=== PATIENT | male | born 1980 | race Two or more races ===

== ENCOUNTER → 2024-07-22 | Outpatient (CLI) | payer MEDICAID, SELFPAY ==
--- NOTE | 2024-07-22 11:00 | XR_ITS ---
Examination: Abdomen sonogram, Limited Date and time of exam: July 22, 2024 1040 hours INDICATIONS: Elevated liver function tests on laboratory examination performed one month ago Technique: Real-time varghese scale transabdominal sonographic images of the upper abdomen obtained. Findings: Normal gallbladder Normal common bile duct 0.4 cm Pancreatic head 2.6 cm Liver 13.8 cm fatty infiltration no focal liver lesions Normal hepatopedal portal venous flow Patent IVC IMPRESSION: Normal gallbladder Normal common bile duct Fatty liver
== END | disposition home or self-care (01) ==
PROVIDERS: PCP Nurse Practitioner Family; Referring Provider Nurse Practitioner Family; Visit Provider Nurse Practitioner Family
DX: K76.0 Fatty (change of) liver, not elsewhere classified (principal)
CPT/HCPCS: 76705

== ENCOUNTER 2024-08-05 19:21 | Emergency (ER) | payer MEDICAID, SELFPAY ==
[2024-08-05 19:22] VITALS: BMI 29.0
--- NOTE | 2024-08-05 19:26 | EKG_ITS ---
[facility] Test Date: 2024-08-05 Pat Name: KE BILL Department: Room: - Gender: Male Director Surgical: : 1980 Requested By: ED Temporary Provider Order Number: [id number] Reading MD: ED Temporary Provider Measurements Intervals [place] Rate: 83 P: 19 [place]: 155 QRS: 52 QRSD: 86 T: 46 QT: 285 QTc: 336 Interpretive Statements SINUS RHYTHM NONSPECIFIC T-WAVE ABNORMALITY No previous ECG available for comparison /store/S0/[id number]/ecg/[id number].pdf
[2024-08-05 19:36] VITALS: BP 118/76; PULSE 76; RESP 18; TEMP 36.9; O2SAT 98
--- NOTE | 2024-08-05 19:43 | EDRME_ITS ---
Rapid Medical Screening Exam [facility] Arrival date/time: 08/05/24 19:21 43-year-old male with past medical history of hyperlipidemia, daily smoker, and occasional drinker presents emergency department complaining of intermittent palpitations and chest pain that radiates to his neck for several days. Chief Complaint: Chest Pain Vital signs: Vital Signs Temperature 98.4 F 08/05/24 19:36 Pulse Rate 76 08/05/24 19:36 Respiratory Rate 18 08/05/24 19:36 Blood Pressure 118/76 08/05/24 19:36 Pulse Oximetry (%) 98 08/05/24 19:36 Oxygen Delivery Method Room Air 08/05/24 19:36 Vital signs reviewed by provider: Yes
--- NOTE | 2024-08-05 19:44 | XR_ITS ---
Examination: PA lateral chest 2 views Technique: Upright PA lateral chest 2 views Exam date and time: August 05, 20242001 hrs. Indications: Chest pain today Findings: Normal heart size. Lungs are clear. The osseous structures are intact Impression: No active disease
[2024-08-05 20:01] LABS: Basophils # (Auto) 0.1 Thou/mm3 (0.0-0.2); Basophils % (Auto) 1 % (0-2.5); Eosinophils # (Auto) 0.4 Thou/mm3 (0.0-0.5); Eosinophils % (Auto) 4 % (0-10); Hematocrit 43.7 % (41.0-53.0); Immature Granulocytes % (Auto) 1 % (0-0); Immature Granulocytes Auto 0.05 Thou/mm3 (0.00-0.00); Lymphocytes # (Auto) 2.9 Thou/mm3 (1.0-4.8); Lymphocytes % (Auto) 29 % (10-50); Mean Corpuscular HGB Conc 34.3 g/dl (31.0-37.0); Mean Corpuscular Hemoglobin 32.3 pg (25.0-35.0); Mean Corpuscular Volume 94 fL (80-100); Monocytes # (Auto) 0.9 Thou/mm3 (0.0-0.8); Monocytes % (Auto) 9 % (0-12); Neutrophils # (Auto) 5.7 Thou/mm3 (1.8-7.7); Neutrophils % (Auto) 57 % (37-80); Nucleated Red Blood Cell % 0 /100 WBC (0); Platelet Count 337 Thou/mm3 (140-440); RDW Standard Deviation 39.8 fL (35.1-43.9); Red Blood Count 4.64 Miln/mm3 (4.50-5.90)
[2024-08-05 20:12] LABS: Collection Type, Urine Clean Catch; Squamous Epithelial Cell,Urine 0 /hpf (0-5)
[2024-08-05 20:16] LABS: Bilirubin,Urine Negative (Negative); Blood,Urine Negative (Negative); Clarity,Urine Clear (Clear/Hazy); Color,Urine Colorless (Lt Yel-Yel); Glucose, Urine Negative (Negative); Ketones,Urine Negative (Negative); Leukocyte Esterase,Urine Negative (Negative); Nitrite,Urine Negative (Negative); Protein,Urine Negative (Neg - Trace); RBC,Urine < 1 /hpf (0-3); Specific Gravity,Urine 1.007 (1.001-1.035); Urobilinogen,Urine Negative mg/dL (0.0-1.0); WBC,Urine < 1 /hpf (0-5)
[2024-08-05 20:18] LABS: Partial Thromboplastin Time 26.5 Seconds (22.0-36.0); Prothrombin Time 11.3 Seconds (9.0-12.2)
[2024-08-05 20:20] VITALS: BP 115/69; PULSE 83; RESP 15; TEMP 36.6; O2SAT 96
[2024-08-05 20:26] LABS: Amphetamine/Methamp Scrn,U Negative (Negative); Barbiturate Screen,Urine Negative (Negative); Benzodiazepines Screen,Urine Negative (Negative); Benzoylecgonine Screen, Ur Negative (Negative); Fentanyl Screen,Urine Negative (Negative); Opiate Screen,Urine Negative (Negative); THC Screen,Urine Negative (Negative)
[2024-08-05 20:27] LABS: B-Type Natriuretic Peptide < 20 pg/mL (0-100)
[2024-08-05 20:31] LABS: Alanine Aminotransferase 95 U/L (10-49); Albumin, Serum 4.8 gm/dL (3.5-5.0); Alkaline Phosphatase 93 U/L (46-116); Anion Gap 10 (7-16); Aspartate Amino Transferase 53 U/L (0-34); BUN/Creatinine Ratio 16 Ratio (12-20); Bilirubin,Total 0.6 mg/dL (0.3-1.2); Blood Urea Nitrogen 16 mg/dL (9-23); Calcium 9.6 mg/dL (8.3-10.6); Calcium (Corrected) 9.6 mg/dL (8.5-10.1); Carbon Dioxide 25.2 mMol/L (20.0-31.0); Chloride 104 mMol/L (98-107); Estimated Creatinine Clearance 94.6 mL/min (>60); Globulin 2.4 gm/dL (2.3-3.5); Glucose 128 mg/dL (74-106); Magnesium 2.2 mg/dL (1.6-2.6); Osmolality,Calculated 280 (275-295); Potassium 3.7 mMol/L (3.4-5.1); Sodium 139 mMol/L (136-145); Total Protein 7.2 gm/dL (5.7-8.2); Troponin I < 0.020 ng/mL (0.0-0.045); eGFR > 60 See Note
--- NOTE | 2024-08-05 20:36 | PC.NURSE ---
Provider at the bedside at this time.
--- NOTE | 2024-08-05 20:39 | PD.EDADULT ---
ED General RME/HPI General Chief complaint: Chest Pain Stated complaint: CHEST PAIN X2 DAYS Time Seen by Provider: 08/05/24 20:31 Arrival date/time: 08/05/24 19:21 CC: Chest pain HPI patient had these intermittent stabbing sensation lasting less than 1 second the been ongoing for today they have since resolved irregular in nature single episode 4 days ago the lasted briefly for several hours and then resolved only for today to return. The patient denies any shortness of breath difficulty breathing prior to 4 days ago and today there is no prior history of similar events. The patient is awake alert oriented nontoxic-appearing not in any acute distress. RME / HPI RME / HPI narrative: 08/05/24 19:21 43-year-old male with past medical history of hyperlipidemia, daily smoker, and occasional drinker presents emergency department complaining of intermittent palpitations and chest pain that radiates to his neck for several days. Related Data Allergies Allergy/AdvReac Type Severity Reaction Status Date / Time No Known Allergies Allergy Verified 08/05/24 19:22 Review of Systems Review of Systems Narrative Review of Systems: GEN: No fever, no chills, no weight loss EYES: No discharge, no visual changes, no pain HEENT: No ear pain, no congestion, no sore throat PULM: No shortness of breath, no cough, no congestion CV: +chest pain, no dyspnea on exertion, no palpitations GI: No nausea, no vomiting, no diarrhea, no pain, no constipation : No frequency, no urgency, no dysuria MUSC/SKEL: No joint pain, no back pain SKIN: No rash PSYCH: No hallucinations, no depression HEME/LYMPH: No easy bleeding or bruising tendencies NEURO: No weakness, no headache Past Medical History Past Medical History CARDIAC: Negative Congestive Heart Failure RESPIRATORY: Negative Chronic Obstructive Pulmonary Disease (COPD) GENITOURINARY: Negative Renal Disease ENDOCRINE: Negative Diabetes Mellitus Type 1 or Diabetes Mellitus Type 2 Social History SMOKING STATUS: Current every day smoker ED Exam Narrative Physical exam: [General: Obese not in any acute distress Head normocephalic HEENT: Within acceptable limits Neck is supple nontender Chest equal chest rise nontender to palpation Respiratory: Clear to auscultation no wheezes crackles or rubs CV: Rate rhythm is regular no murmurs rubs or clicks Abdomen is distended secondary to body habitus soft nontender no masses positive bowel sounds all 4 quadrants Back: No CVA tenderness no spinous process tenderness from cervical spine thoracic and lumbar spine Skin: Intact no petechiae rash induration ulceration or crepitus Extremities: Moving all extremity against resistance cap refill less than 2 seconds neurosensory intact Neuro: Awake alert oriented x3 Glascow coma 15 no focal deficits] Course Quality Measures none Orders Category Date Time Status EKG (ED ONLY) *Do not use* NOW Care 08/05/24 19:26 Completed EKG (ED Only) Stat Exams 08/05/24 19:26 Draft XR chest 2V Stat Exams 08/05/24 19:44 Completed B-Type Natriuretic Peptide Stat Lab 08/05/24 19:49 Completed CBC Stat Lab 08/05/24 19:49 Received Comprehensive Metabolic Panel Stat Lab 08/05/24 19:49 Completed Drug Screen,Urine Stat Lab 08/05/24 20:02 Completed Magnesium Stat Lab 08/05/24 19:49 Completed Partial Thromboplastin Time Stat Lab 08/05/24 19:49 Completed Prothrombin Time with INR Stat Lab 08/05/24 19:49 Completed Troponin I Stat Lab 08/05/24 19:49 Completed Urinalysis Stat Lab 08/05/24 20:02 Received Vital Signs Vital signs: Vital Signs Temperature 98.4 F 08/05/24 19:36 Pulse Rate 76 08/05/24 19:36 Respiratory Rate 18 08/05/24 19:36 Blood Pressure 118/76 08/05/24 19:36 Pulse Oximetry (%) 98 08/05/24 19:36 Oxygen Delivery Method Room Air 08/05/24 19:36 [facility] Patient data External records reviewed:: [facility] previous records Clinical information provided by:: patient Social determinants that could affect healthcare access:: none Patient has the following chronic illnesses:: None How is presenting disease/condition affected by chronic disease/condition?: uneffected by Evaluation data The following diagnostics were reviewed and interpreted by me:: lab results, radiology exam(s) and EKG tracing(s) Lab and/or radiology exams considered but not ordered:: EKG performed at 1940 shows a ventricular rate of 83 [place] interval 155 QRS of 86 QTc of 325 this is sinus rhythm nonspecific ST segment changes no old EKG for comparison CBC shows no acute leukocytosis anemia thrombocytopenia CMP shows no electrolyte imbalances renal impairment transaminitis or T. bili elevation Troponin is negative BNP is negative Chest x-ray as interpreted by me read by radiology as negative for any acute finding requires emergent or immediate intervention. Interpretation Summary: Most likely chest pain I doubt this is cardiac related probably musculoskeletal in nature. Heart score of 1. Medications Medications considered but not ordered:: None Medication administrations:: None Consultations Consultation(s) initiated? (list below): No Diagnosis Differential Diagnosis ED Complaint MDM: ACS [place] pneumonia Most likely diagnosis given after review of the tests above:: Chest pain Admission Indicated Admission indicated?: not indicated Explain why admission is indicated or not indicated:: Stable for outpatient follow-up Admission Request Was there a request for admission?: No Disposition Plan Disposition Plan: Discharge Discharge Attestation Discharge Attestation: The patient and all family members were given an opportunity to ask questions and understood the discharge instructions. Discharge instructions specifically effects, indications for sooner follow up or return to the emergency department, and the expected course of current diagnosis. Patient condition: Stable Medical Decision Making Differential Diagnosis Differential Diagnosis: ACS [place] pneumonia Lab Data 08/05/24 19:49 08/05/24 19:49 Labs: Lab Results 08/05/24 08/05/24 Range/Units 19:49 20:02 PT 11.3 (9.0-12.2) Seconds INR 1.0 (0.9-1.3) APTT 26.5 (22.0-36.0) Seconds Sodium 139 (136-145) mMol/L Potassium 3.7 (3.4-5.1) mMol/L Chloride 104 (98-107) mMol/L Carbon Dioxide 25.2 (20.0-31.0) mMol/L Anion Gap 10 (7-16) BUN 16 (9-23) mg/dL Creatinine 1.0 (0.6-1.3) mg/dL Estim Creat Clear Calc 94.6 (>60) mL/min eGFR > 60 (60 - ) See Note BUN/Creatinine Ratio 16 (12-20) Ratio Glucose 128 H (74-106) mg/dL Calculated Osmolality 280 (275-295) Calcium 9.6 (8.3-10.6) mg/dL Corrected Calcium 9.6 (8.5-10.1) mg/dL Magnesium 2.2 (1.6-2.6) mg/dL Total Bilirubin 0.6 (0.3-1.2) mg/dL AST 53 H (0-34) U/L ALT 95 H (10-49) U/L Alkaline Phosphatase 93 (46-116) U/L Troponin I < 0.020 (0.0-0.045) ng/mL B-Natriuretic Peptide < 20 (0-100) pg/mL Total Protein 7.2 (5.7-8.2) gm/dL Albumin 4.8 (3.5-5.0) gm/dL Globulin 2.4 (2.3-3.5) gm/dL Albumin/Globulin Ratio 2.0 (1.2-2.2) Urine Opiates Screen Negative (Negative) Urine Fentanyl Screen Negative (Negative) Ur Barbiturates Screen Negative (Negative) U Amphetamin/Meth Scrn Negative (Negative) U Benzodiazepines Scrn Negative (Negative) U Cocaine Metab Screen Negative (Negative) U Marijuana (THC) Screen Negative (Negative) Discharge Plan Plan Patient Disposition: HOME (Self Care) Patient condition on transfer: Stable Prescriptions/Referrals Referrals: No Primary/Family,Physician [Primary Care Provider] - In 1 week Tae Franco MD [Physician] - In 1 week Problem List Clinical Impression: Chest pain Patient/Caregiver Discharge Instructions Education Materials: ED Chest Pain, Uncertain Cause Additional Instructions: There is a worsening of symptoms between now and the August 10 when you follow-up with your primary care provider return the emergency room for reevaluation. Print Language: Maldivian Stand Alone Forms: Shirley Award Info., Patient Portal Info Letter, Work/School Release PA/FELICIA Supervising Physician PA/FELICIA Supervising Physician: Nolberto Guerra ENP
[2024-08-05 20:49] VITALS: BP 117/71; PULSE 76; RESP 18; O2SAT 95
== END 2024-08-05 20:48 | disposition home or self-care (01) ==
PROVIDERS: Emergency Provider Emergency Medicine
DX: R07.9 Chest pain, unspecified (principal); E66.9 Obesity, unspecified; Z68.29 Body mass index [BMI] 29.0-29.9, adult
CPT/HCPCS: 36415; 71046; 80053; 80307; 81001; 83735; 83880; 84484; 85025; 85610; 85730; 93005; 99283

== ENCOUNTER 2024-09-10 09:20 | Outpatient (RCR) | payer MEDICAID, SELFPAY ==
--- NOTE | 2024-09-12 05:19 | CTCCONSULT_ITS ---
Patient: KE BILL I. : 1980 MR#: [id number] Page 2 of 3 CONSULTATION NOTEDocumentBrowseOnWindow DATE OF CONSULTATION: 09/10/2024 NAME: KE BILL I. ACCOUNT: [id number] : 1980 AGE: 43 REFERRING PHYSICIAN: Rosina Frias MD PRIMARY PHYSICIAN: REASON FOR VISIT: Erythrocytosis HISTORY OF PRESENT ILLNESS: 43-year-old male is referred for elevated hemoglobin. Patient complains of fatigue. Do not complain of any shortness of breath dizziness. OTHER MEDICAL HISTORY/CONDITIONS: HIGH CHOLESTEROL SEASONAL ALLERGIES VIT D DEFICENCY ELEVATED LIVER ENZYMES ELEVATED FERRITIN LEVELS PREDIABETES DENIES FAMILY HISTORY: Cancer?History:?DENIES Patient?denies?family?cancer?history. 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 Tobacco?Pack?per?Day:?0.5 Tobacco?Use?Years:?10 Tobacco?Use:?6?CIGS?PER?DAY ETOH?Use:?ADMITS?4?BEERS?PER?DAY Drug?Note:?DENIES Social?History?Note:?LIVES?WITH? [employer] HISTORY: MEDICATIONS: 1. atorvastatin - 40 mg 1 tab Daily Medications Last Reconciled by Maria Ines Sun MD on 09/10/2024 ALLERGIES: No Known Allergies REVIEW OF SYSTEMS: A complete 14-point review of systems was performed and is negative except as noted in interval history. PHYSICAL EXAMINATION: VITAL SIGNS: Temperature?98.4, B/P?125/79, Height?66?inches, Oxygen?Saturation?98% Weight?191?lbs PAIN: 0 - No pain ECOG Performance Status: 0 - Asymptomatic and fully active GENERAL APPEARANCE: Appears well, in no apparent distress, appropriately interactive. HEENT: Normocephalic, no temporal wasting, normal conjunctiva, no scleral icterus, normal hearing, lips without lesions, neck normal range of motion. CARDIOVASCULAR: Not assessed. PULMONARY: Normal respiratory effort, no respiratory distress or use of accessory muscles, speaking in full sentences, no tachypnea. EXTREMITIES: No pedal edema or cyanosis. SKIN: Normal skin appearance. NEUROLOGIC: Alert and oriented x4. PSHYCHIATRIC: Appropriate affect, mood normal, behavior normal, intact thought and speech. LABORATORY DATA: I have personally reviewed and interpreted each of the patient?s relevant lab tests, abnormal findings are below: Date 08/05/24 ??GLUCOSE,RANDOM?(mg/dL) 128?H ??BLOOD?UREA?NITROGEN?(mg/dL) 16 ??CREATININE?(mg/dL) 1.00 ??SODIUM?(mmol/L) 139 ??POTASSIUM?(mmol/L) 3.7 ??CHLORIDE?(mmol/L) 104 ??AST/SGOT?(Unit/L) 53?H ??ALT/SGPT?(Unit/L) 95?H ??ALKALINE?PHOSPHATASE?(Unit/L) 93 ??BILIRUBIN,?TOTAL?(mg/dL) 0.6 ??PROTEIN?TOTAL?(gm/dl) 7.2 ??ALBUMIN,?SERUM?(gm/dl) 4.8 ??GLOBULIN?(gm/dl) 2.4 ??ALBUMIN/GLOBULIN?RATIO 2.0 ??CALCIUM,?SERUM?(mg/dL) 9.6 ??CALCIUM?SERUM?(CORRECTED)?(mg/dL) 9.6 ASSESSMENT/PLAN: Erythrocytosis Patient have increased red blood cells Likely causes include hypoxia or elevated erythropoietin from renal tumors Will check for JAK2 mutation obstructive sleep apnea with sleep study erythropoietin level and start patient on phlebotomy Will phlebotomize if hematocrit is above 45 1-2 times in a week Follow-up on the labs Continue phlebotomy until goal is reached CBC CMP ferritin sleep study JAK2 erythropoietin and phlebotomy RETURN TO CLINIC: BILLING AND COMPLIANCE: I reviewed external records from providers outside my specialty as summarized above. I spent a total of 50 minutes on this patient?s care on the day of their visit excluding time spent related to any billed procedures. This time includes time spent with the patient as well as time spent documenting in the medical record, reviewing patients records and tests, obtaining history, placing orders, communicating with other healthcare professionals, counseling the patient, family or caregiver, and/or care coordination for the diagnoses above. Electronically Signed by: Manuel Agrawal MD T: 5:17 AM CC: PCP: Referring: Rosina Frias This document was completed utilizing speech recognition software. Grammatical errors, random word insertions, pronoun errors, and incomplete sentences are an occasional consequence of this system due to software limitations, ambient noise, and hardware issues. Any formal questions or concerns about the content, text or information contained within the body of this dictation should be directly addressed to the provider for clarification.
== END 2024-10-04 23:59 | disposition home or self-care (01) ==
LOC: SCTC 09:20
PROVIDERS: PCP Nurse Practitioner Family; Referring Provider Nurse Practitioner Family; Visit Provider Internal Medicine Hematology & Oncology
DX: D75.1 Secondary polycythemia (principal)
CPT/HCPCS: 99213; G0463

== ENCOUNTER 2025-07-14 14:58 | Outpatient (AMB) | payer MEDICAID, SELFPAY ==
[2025-07-14 15:39] VITALS: BP 112/73; PULSE 83; RESP 18; TEMP 36.4; O2SAT 94; BMI 31.4
--- NOTE | 2025-07-14 15:39 | PD.GSCLVISIT ---
Vital Signs - [facility] 07/14/25 15:39 Height 1.7 m Height Method Measured Weight 90.945 kg Weight Measurement Method Standing Scale BMI 31.4 BP 112/73 Blood Pressure Source Automatic Cuff Blood Pressure Location Left Upper Arm Position Sitting Respiration 18 Pulse 83 Pulse Source Monitor Temp 97.5 F Temp Source Temporal Artery Scan Pulse Oximetry (%) 94 L Oxygen Delivery Method Room Air Med/Allergies Allergies & Medications Allergies No Known Allergies Allergy (Verified 07/14/25 15:42) Medication Reconciliation No Known Home Medications 07/14/25 [History Confirmed 07/14/25] MA Intake Visit Data Collection New Patient or Established: New Patient (never been to [facility]) Seen by Clinical Staff ONLY (RN/MA): No Reason for Visit:: REFERRAL COLONOSCOPY Pain Present Currently: No Pain Scale Used: [place]/Numerical Gum Puller Required: Yes PCP or OBGYN visit in last 3 months: Yes Hx Now: No Do You Feel Safe at Home: Yes Authorities Contacted: N/A Smoking Status Smoking Status: Current every day smoker Cessation Counseling Provided: KE was advised that quitting smoking is the single most important factor to protect the health of themselves and their family. Discussed the benefits of quitting smoking with patient. Encouraged patient to quit smoking and provided Cessation assistance materials and resources. Tobacco Use: Cigarette (5 CIGARETTES A DAY) Years smoked: 5 Are you interested in quitting?: No Would you like additional Smoking Cessation Counseling?: Yes Immunization / Flu Flu Vaccine in the Last 12 Months: Yes Flu Vaccine Exclusion Criteria: No Exclusion Criteria Past Medical History Past Medical History CARDIAC: Negative Congestive Heart Failure RESPIRATORY: Negative Chronic Obstructive Pulmonary Disease (COPD) GENITOURINARY: Negative Renal Disease ENDOCRINE: Negative Diabetes Mellitus Type 1 or Diabetes Mellitus Type 2 Social History SMOKING STATUS: Smoking status: Current every day smoker HPI HPI Narrative Spoke to patient with in person healthcare consulting manager 44M referred for for screening colonoscopy. Patient denies any changes in bowel habits, blood in stool, anorexia or unintentional weight loss, feeling very well overall PMH: None PSH: Removal of skin lesion of upper back Meds: None Allergies: NKDA Family history: No known colon or rectal cancer ROS Review of Systems Systems Reviewed: All systems reviewed, normal except as documented Objective/Exam General General Appearance: alert, cooperative and well groomed Resp Respiratory exam: Absent respiratory distress Assessment & Plan Diagnosis / Problem List (1) Encounter for screening colonoscopy: Status: Acute Assessment & Plan: 44M otherwise healthy presenting for for screening colonoscopy. I explained conscious sedation, prep and benefits/risks of the procedure including bleeding, perforation requiring emergency surgery as well as the potential of needing to abort prematurely for safety. All questions were answered and patient prefers to schedule the procedure for August 2025 Office Procedures GNS Level of Care Nursing/Assessment Patient Status: Initial/New Patient Nursing Assessment/Reassesment: Medication Reconciliation, Update PMH in EMR and Vital Signs Coordination of Care: Complex Care and Chronic Disease 1-5, Education Complex Pt/Fam, Consent,records obtained, informed consent, Results/Orders obtained and Staff clarify orders Special Needs: Language special needs New Patient Charge New Patient Point Assignment: 1094 New Patient Point Charge: DEFENSE TRAVEL ADMINISTRATOR Level 3 ([id number]) Patient Portal Questionaires Social History Tobacco History Smoking Status: Current every day smoker Domestic Abuse History Do You Feel Safe at Home: Yes Review of Systems Report any current symptoms Only answer those that you have currently: Past Medical History Past Medical History Have you ever been diagnosed with any of the following: Cardiology Problems Congestive Heart Failure: No Respiratory Problems Chronic Obstructive Pulmonary Disease (COPD): No Genital/Urinary Problems Renal Disease: No Endocrine Problems Diabetes Mellitus Type 1: No Diabetes Mellitus Type 2: No
== END 2025-07-14 16:24 | disposition home or self-care (01) ==
PROVIDERS: PCP Nurse Practitioner Family; Referring Provider Nurse Practitioner Family; Supervising Provider Surgery; Visit Provider Surgery
DX: Z12.11 Encounter for screening for malignant neoplasm of colon (principal); F17.210 Nicotine dependence, cigarettes, uncomplicated; Z71.6 Tobacco abuse counseling
CPT/HCPCS: 99203; G0463